=== PATIENT | female | born 1965 | race Caucasian/White ===

== ENCOUNTER 2019-01-08 12:12 | Emergency (ER) | payer BC, OTHER ==
[~2019-01-08] VITALS: Ht 157.5 cm; Wt 55.9 kg
[2019-01-08] MEDS ORDERED: SODIUM CHLORIDE FLUSH 10ML SYR IVF ONE (13:00)
--- NOTE | 2019-01-08 13:16 | NUR ---
PT AMBULATORY FROM LOBBY TO ROOM 10 W/ C/O BEING FLU A+ AT . N/V/D X 2 DAYS. PT STATES "MY KIDNEYS HURT REAL BAD AND MY HEAD IS POUNDING". C/O BILAT FLANK PAIN YESTERDAY. PT RESTING ON GURNEY. NADN. WARM BLANKET PROVIDED. FAMILY AT BEDSIDE.
[2019-01-08] MEDS ORDERED: ONDANSETRON 2MG/ML, 2ML ONE (13:39)
[2019-01-08] MEDS ORDERED: PANTOPRAZOLE 40 MG IV ONE (13:40)
[2019-01-08 13:44] LABS: BASOPHILS # (AUTO) 0.02 x10^3/uL (0-0.1); BASOPHILS % (AUTO) 1 % (0-1); EOSINOPHILS # (AUTO) 0.02 x10^3/uL (0-0.4); EOSINOPHILS % (AUTO) 0 % (1-7); LYMPHOCYTES # (AUTO) 0.42 x10^3/uL (1-3.4); LYMPHOCYTES % (AUTO) 10 % (22-44); MD NO; MEAN CORPUSCULAR HEMOGLOBIN 27.7 pg (27.0-34.8); MEAN CORPUSCULAR HGB CONC 32.4 g/dL (32.4-35.8); MEAN CORPUSCULAR VOLUME 85.4 fL (80-100); MEAN PLATELET VOLUME 11.1 fL (7.4-10.4); MONOCYTES # (AUTO) 0.34 x10^3/uL (0.2-0.8); MONOCYTES % (AUTO) 8 % (2-9); NEUTROPHILS # (AUTO) 3.53 x10^3/uL (1.8-6.8); NEUTROPHILS % (AUTO) 82 % (42-75); PLATELET COUNT 148 x10^3/uL (130-400); RED CELL DISTRIBUTION WIDTH 14.6 % (9.6-15.2)
[2019-01-08 13:47] LABS: ALBUMIN 4.4 g/dL (3.4-5.0); ANION GAP 8 mmol/L (5-15); CALCIUM 9.2 mg/dL (8.5-10.1); CHLORIDE 101 mmol/L (98-107)
[2019-01-08 13:51] LABS: ALANINE AMINOTRANSFERASE 29 U/L (12-78); ALKALINE PHOSPHATASE 84 U/L (45-117); BILIRUBIN,TOTAL 0.6 mg/dL (0.2-1.0); CREATININE 0.87 mg/dL (0.55-1.02); TOTAL PROTEIN 7.7 g/dL (6.4-8.2)
[2019-01-08] MEDS ORDERED: PANTOPRAZOLE 40 MG IV IVPush ONE (14:00)
[2019-01-08] MEDS ORDERED: SODIUM CHLORIDE 0.9% 1,000ML IVBOLUS ONE (14:00)
[2019-01-08] MEDS ORDERED: ONDANSETRON 2MG/ML, 2ML IVPush ONE (14:00)
--- NOTE | 2019-01-08 14:09 | NUR ---
pt medicated per emar. pt ua collected and sent to lab
[2019-01-08] MEDS ORDERED: KETOROLAC 30 MG/1 ML ONE (14:16)
[2019-01-08 14:21] VITALS: BP 154/68
[2019-01-08] MEDS ORDERED: KETOROLAC 30 MG/1 ML IVPush ONE (14:30)
== END 2019-01-08 15:02 | disposition home or self-care (01) ==
LOC: ED 14:50
DX: K29.00 Acute gastritis without bleeding (principal); R11.2 Nausea with vomiting, unspecified; E86.0 Dehydration; J11.1 Influenza due to unidentified influenza virus with other respiratory manifestations
CPT/HCPCS: 36415; 80053; 83690; 85025; 96361; 96374; 96375; 99283; C9113; J1885; J2405; J7030